=== PATIENT | male | born 1965 | race Caucasian/White ===

== ENCOUNTER 2020-08-13 00:47 | Emergency (ER) | payer MEDICAID, OTHER ==
[~2020-08-13] VITALS: Ht 170.1 cm; Wt 77.1 kg
[2020-08-13] MEDS ORDERED: LACTATED RINGERS 1,000 ML IV ONE ×2 (01:00→01:45)
[2020-08-13 01:11] LABS: BASOPHILS # (AUTO) 0.1 10^3/uL (0.0-0.1); BASOPHILS % (AUTO) 0 % (0-10); EOSINOPHILS % (AUTO) 0 % (0-10); HEMATOCRIT 50 % (40-54); HEMOGLOBIN 16.9 g/dL (13.3-17.7); LYMPHOCYTES # (AUTO) 1.2 10^3/uL (1.0-4.0); LYMPHOCYTES % (AUTO) 6 % (12-44); MEAN CORPUSCULAR HEMOGLOBIN 32 pg (25-34); MEAN CORPUSCULAR HGB CONC 34 g/dL (32-36); MEAN CORPUSCULAR VOLUME 95 fL (80-99); MEAN PLATELET VOLUME 10.1 fL (9.0-12.2); MONOCYTES # (AUTO) 1.3 10^3/uL (0.0-1.0); MONOCYTES % (AUTO) 7 % (0-12); NEUTROPHILS % (AUTO) 86 % (42-75); PLATELET COUNT 252 10^3/uL (130-400); WHITE BLOOD COUNT 18.7 10^3/uL (4.3-11.0)
[2020-08-13 01:21] LABS: CHLORIDE 109 MMOL/L (98-107); POTASSIUM 3.8 MMOL/L (3.6-5.0); SODIUM 142 MMOL/L (135-145)
[2020-08-13 01:22] LABS: ALBUMIN 4.7 GM/DL (3.2-4.5)
[2020-08-13 01:23] LABS: CALCIUM 9.4 MG/DL (8.5-10.1); PROTHROMBIN TIME PATIENT 13.6 SEC (12.2-14.7)
[2020-08-13 01:24] LABS: GLUCOSE 118 MG/DL (70-105); TOTAL PROTEIN 7.3 GM/DL (6.4-8.2)
[2020-08-13 01:25] LABS: CARBON DIOXIDE 19 MMOL/L (21-32)
[2020-08-13 01:28] LABS: ALKALINE PHOSPHATASE 126 U/L (40-136); CREATININE SERUM 1.41 MG/DL (0.60-1.30); GFR ESTIMATED 52
[2020-08-13 01:29] LABS: BUN/CREATININE RATIO 11
[2020-08-13 01:31] LABS: ALANINE AMINOTRANSFERASE 20 U/L (0-55); CREATINE KINASE 128 U/L (30-200); MAGNESIUM 1.7 MG/DL (1.6-2.4)
[2020-08-13 01:38] LABS: CREATINE KINASE MB 1.2 NG/ML (<6.6)
[2020-08-13 01:39] LABS: ACETAMINOPHEN < 10 UG/ML (10-30)
[2020-08-13 02:15] LABS: BAND NEUTROPHILS 12 %; LYMPHOCYTES % (MANUAL) 6 %; MICROCYTOSIS SLIGHT; MONOCYTES % (MANUAL) 6 %; NEUTROPHILS % (MANUAL) 76 %; POLYCHROMASIA MODERATE
--- NOTE | 2020-08-13 02:28 | ED General ---
General Chief Complaint: Neurological Problems Stated Complaint: SIEZURE/CONFUSION Nursing Triage Note: ARRIVES BY POV WS REPORTED HE WAS HAVING A SEIZURE TATTOOER. Nursing Sepsis Screen: No Definite Risk Source of Information: Patient (SOMEWHAT DIFFICULT HISTORIAN) Allergies and Home Medications Allergies Coded Allergies: No Known Drug Allergies (Unverified , 08/13/20) Past Egydusu-Xillog-Xtbuap Hx Patient Social History Alcohol Use: Denies Use Recreational Drug Use: No Type Used: Smokeless Tobacco Recent Foreign Travel: No Contact w/Someone Who Travel: No Recent Infectious Disease Expo: No Recent Hopitalizations: No Physical Abuse: No Sexual Abuse: No Mistreated: No Fear: No Immunizations Up To Date Tetanus Booster (TDap): Unknown Seasonal Allergies Seasonal Allergies: No Past Medical History Surgeries: Yes Cardiac Respiratory: No Cardiac: No Neurological: No Genitourinary: No Gastrointestinal: No Musculoskeletal: No Endocrine: No HEENT: No Cancer: No Psychosocial: No Integumentary: No Blood Disorders: No Physical Exam Vital Signs Vital Signs - First Documented 08/13/20 00:54 Temp 37.0 Pulse 104 Resp 18 B/P (MAP) 129/89 (102) Pulse Ox 94 Capillary Refill : Less Than 3 Seconds Height, Weight, BMI Height: '" Weight: lbs. oz. kg; 26.00 BMI Method: Progress/Results/Core Measures Suspected Sepsis Recent Fever Within 48 Hours: No Infection Criteria Present: None New/Unexplained Altered Menta: No Sepsis Screen: No Definite Risk SIRS Temperature: Pulse: 104 Respiratory Rate: 18 Laboratory Tests 08/13/20 01:00: White Blood Count 18.7H Blood Pressure 129 /89 Mean: 102 Laboratory Tests 08/13/20 01:00: Creatinine 1.41H, INR Comment 1.0, Platelet Count 252, Total Bilirubin 1.0 Results/Orders Lab Results Laboratory Tests Test 08/13/20 01:00 08/13/20 01:30 08/13/20 01:34 Range/Units White Blood Count 18.7 H 4.3-11.0 10^3/uL Red Blood Count 5.33 4.30-5.52 10^6/uL Hemoglobin 16.9 13.3-17.7 g/dL Hematocrit 50 40-54 % Mean Corpuscular Volume 95 80-99 fL Mean Corpuscular Hemoglobin 32 25-34 pg Mean Corpuscular Hemoglobin Concent 34 32-36 g/dL Red Cell Distribution Width 12.9 10.0-14.5 % Platelet Count 252 130-400 10^3/uL Mean Platelet Volume 10.1 9.0-12.2 fL Immature Granulocyte % (Auto) 0 % Neutrophils (%) (Auto) 86 H 42-75 % Lymphocytes (%) (Auto) 6 L 12-44 % Monocytes (%) (Auto) 7 0-12 % Eosinophils (%) (Auto) 0 0-10 % Basophils (%) (Auto) 0 0-10 % Neutrophils # (Auto) 16.0 H 1.8-7.8 10^3/uL Lymphocytes # (Auto) 1.2 1.0-4.0 10^3/uL Monocytes # (Auto) 1.3 H 0.0-1.0 10^3/uL Eosinophils # (Auto) 0.0 0.0-0.3 10^3/uL Basophils # (Auto) 0.1 0.0-0.1 10^3/uL Immature Granulocyte # (Auto) 0.1 0.0-0.1 10^3/uL Neutrophils % (Manual) 76 % Lymphocytes % (Manual) 6 % Monocytes % (Manual) 6 % Band Neutrophils 12 % Polychromasia MODERATE Microcytosis SLIGHT Prothrombin Time 13.6 12.2-14.7 SEC INR Comment 1.0 0.8-1.4 Activated Partial Thromboplast Time 36 H 24-35 SEC Sodium Level 142 135-145 MMOL/L Potassium Level 3.8 3.6-5.0 MMOL/L Chloride Level 109 H 98-107 MMOL/L Carbon Dioxide Level 19 L 21-32 MMOL/L Anion Gap 14 5-14 MMOL/L Blood Urea Nitrogen 15 7-18 MG/DL Creatinine 1.41 H 0.60-1.30 MG/DL Estimat Glomerular Filtration Rate 52 BUN/Creatinine Ratio 11 Glucose Level 118 H 70-105 MG/DL Glucometer 110 70-110 MG/DL Calcium Level 9.4 8.5-10.1 MG/DL Corrected Calcium 8.5-10.1 MG/DL Magnesium Level 1.7 1.6-2.4 MG/DL Total Bilirubin 1.0 0.1-1.0 MG/DL Aspartate Amino Transf (AST/SGOT) 18 5-34 U/L Alanine Aminotransferase (ALT/SGPT) 20 0-55 U/L Alkaline Phosphatase 126 40-136 U/L Total Creatine Kinase 128 30-200 U/L Creatine Kinase MB 1.2 <6.6 NG/ML Myoglobin 210.8 H 10.0-92.0 NG/ML Total Protein 7.3 6.4-8.2 GM/DL Albumin 4.7 H 3.2-4.5 GM/DL Acetaminophen Level < 10 L 10-30 UG/ML Serum Alcohol < 10 <10 MG/DL Coronavirus 2019 (LOIS) Negative Negative Troponin I < 0.028 <0.028 NG/ML My Orders Orders - NAVYA MUNOZ DO Accucheck Stat ONCE (08/13/20 00:55) Ed Iv/Invasive Line Start (08/13/20 00:55) Ekg Tracing (08/13/20 00:55) Monitor-Rhythm Ecg Trace Only (08/13/20 00:55) Ct Head Wo-R/O Stroke (08/13/20 00:55) Acetaminophen (08/13/20 00:55) Alcohol (08/13/20 00:55) Cbc With Automated Diff (08/13/20 00:55) Comprehensive Metabolic Panel (08/13/20 00:55) Creatine Kinase (08/13/20 00:55) Creatine Kinase Mb (08/13/20 00:55) Dilantin (Phenytoin) (08/13/20 00:55) Drug Screen Stat (Urine) (08/13/20 00:55) Magnesium (08/13/20 00:55) Protime With Inr (08/13/20 00:55) Partial Thromboplastin Time (08/13/20 00:55) Ua Culture If Indicated (08/13/20 00:55) Myoglobin Serum (08/13/20 00:55) Ed Iv/Invasive Line Start (08/13/20 00:55) Lactated Ringers (Lr 1000 Ml Iv Solution (08/13/20 01:00) Chest 1 View, Ap/Pa Only (08/13/20 00:57) Coronavirus Sars-Cov-2 So 2018 (08/13/20 00:59) Covid 19 Inhouse Test (08/13/20 00:59) Manual Differential (08/13/20 01:00) Troponin I (08/13/20 01:34) Ekg Tracing (08/13/20 01:34) Ed Iv/Invasive Line Start (08/13/20 01:43) Lactated Ringers (Lr 1000 Ml Iv Solution (08/13/20 01:45) Medications Given in ED Current Medications Medications Dose Ordered Sig/Jenny Route Start Time Stop Time Status Last Admin Dose Admin Lactated Ringer's 1,000 ml @ 0 mls/hr Q0M ONCE IV 08/13/20 01:00 08/13/20 01:01 DC 08/13/20 02:15 1,000 MLS/HR Lactated Ringer's 1,000 ml @ 0 mls/hr Q0M ONCE IV 08/13/20 01:45 08/13/20 01:46 DC 08/13/20 02:24 100 MLS/HR Vital Signs/I&O 08/13/20 00:54 Temp 37.0 Pulse 104 Resp 18 B/P (MAP) 129/89 (102) Pulse Ox 94 Capillary Refill : Less Than 3 Seconds Blood Pressure Mean: 102 Point of Care Testing Finger Stick Blood Glucose: 110 Progress Note : Progress Note SLEPT THROUGH ENTIRE ER STAY, EASILY AWAKENS NO DETERIORATION IN PT'S CONDITION DURING ER STAY NO SEIZURE ACTIVITY DURING ER STAY ECG Initial ECG Impression Date: Aug 13, 2020 Initial ECG Impression Time: 01:38 Initial ECG Rate: 84 Initial ECG Rhythm: Normal Sinus (RBBB) Initial ECG Impression: Nonspecific Changes Initial ECG Comparisson: No Previous ECG Available Diagnostic Imaging Comments CXR--NO ACUTE PROCESS, PENDING RADIOLOGIST REVIEW CT HEAD--NO ACUTE PROCESS, PER [facility] VIA FAX AT [id number] Reviewed: Reviewed by Me Departure Impression Primary Impression: REPORTED SEIZURE ACTIVITY Additional Impressions: Hx of seizure disorder Non-compliance Disposition: 01 HOME, SELF-CARE Condition: Stable Departure-Patient Inst. Patient Instructions: Seizures, Adult (DC) Add. Discharge Instructions: GET YOUR PRESCRIPTIONS FILLED TODAY AND TAKE PRESCRIBED INCREASE YOUR FLUID INTAKE FOLLOW UP WITH OF [facility] THIS WEEK FOR FURTHER CARE--CALL THIS MORNING TO SCHEDULE AN APPOINTMENT--LIST OF LOCAL PROVIDERS ATTACHED All discharge instructions reviewed with patient and/or family. Voiced understanding. Work/School Note: Local Medical Staff Listing NAVYA MUNOZ DO Aug 13, 2020 02:28
[2020-08-13 03:23] LABS: BILIRUBIN,URINE NEGATIVE (NEGATIVE); CLARITY,URINE CLEAR; COLOR,URINE YELLOW; GLUCOSE, URINE (UA) NEGATIVE (NEGATIVE); KETONES,URINE NEGATIVE (NEGATIVE); LEUKOCYTE ESTERASE ,URINE NEGATIVE (NEGATIVE); NITRITE,URINE NEGATIVE (NEGATIVE); PROTEIN,URINE NEGATIVE (NEGATIVE)
[2020-08-13 03:35] LABS: AMPHETAMINE SCREEN, URINE NEGATIVE (NEGATIVE); BACTERIA,URINE NEGATIVE /HPF; BARBITURATE SCREEN URINE NEGATIVE (NEGATIVE); BENZODIAZEPINES SCREEN URINE NEGATIVE (NEGATIVE); CANNABINOID SCREEN, URINE NEGATIVE (NEGATIVE); COCAINE SCREEN URINE NEGATIVE (NEGATIVE); METHADONE STAT NEGATIVE (NEGATIVE); METHAMPHETAMINE SCREEN URINE S NEGATIVE (NEGATIVE); OPIATE SCREEN URINE NEGATIVE (NEGATIVE); OXYCODONE STAT NEGATIVE (NEGATIVE); PROPOXYPHENE STAT NEGATIVE (NEGATIVE); SQUAMOUS EPITHELIAL CELL,UR RARE /HPF; TRICYCLIC ANTIDEPRESSANTS SCRE NEGATIVE (NEGATIVE); WBC,URINE RARE /HPF
[2020-08-13 03:48] VITALS: BP 108/58
--- NOTE | 2020-08-13 06:15 | Diagnostic Imaging Report ---
PROCEDURE: CT head wo r/o stroke. TECHNIQUE: Multiple contiguous axial images were obtained through the brain without the use of intravenous contrast. Auto Exposure Controls were utilized during the CT exam to meet ALARA standards for radiation dose reduction. INDICATION: Seizure. Altered mental status. Neurological deficit. COMPARISON: None. FINDINGS: No intracranial hemorrhage, mass effect, hydrocephalus or extra-axial fluid collections. No CT evidence of a territorial infarction. Osseous structures are intact. The paranasal sinuses are clear. Small left mastoid effusion. IMPRESSION: 1. No acute intracranial CT findings. 2. Nonspecific small left mastoid effusion. No significant change from preliminary interpretation. Dictated by: Dictated on workstation # [id number]
--- NOTE | 2020-08-13 06:52 | Diagnostic Imaging Report ---
INDICATION: Seizure COMPARISON: None available TECHNIQUE: Single radiograph of the chest dated 08/13/2020 FINDINGS: Stimulator device is present with battery pack overlying the left chest. The cardiac silhouette is mildly enlarged. No significant pulmonary vascular congestion. The lungs are clear. No pleural effusion. No pneumothorax. No acute osseous abnormality. IMPRESSION: Borderline cardiomegaly without significant pulmonary vascular congestion. Dictated by: Dictated on workstation # [id number]
== END 2020-08-13 03:49 | disposition home or self-care (01) ==
LOC: ER 00:51
DX: G40.909 Epilepsy, unspecified, not intractable, without status epilepticus (principal); Z91.19 Patient's noncompliance with other medical treatment and regimen; Z20.828 Contact with and (suspected) exposure to other viral communicable diseases
CPT/HCPCS: 36415; 70450; 71045; 80053; 80185; 80306; 80320; 80329; 81000; 82550; 82553; 82962; 83735; 83874; 84484; 85007; 85027; 85610; 85730; 87635; 93005; 93041

== ENCOUNTER 2023-07-18 19:43 | Emergency (ER) | payer MEDICARE, MEDICAID ==
[~2023-07-18] VITALS: Ht 182 cm; Wt 100.0 kg
--- NOTE | 2023-07-18 19:58 | ED General ---
General Stated Complaint: SEIZURE Source of Information: EMS History of Present Illness Date Seen by Provider: Jul 18, 2023 Time Seen by Provider: 19:45 Initial Comments Patient is a 58-year-old male who presents to the emergency room after 2 seizures this evening. This history is primarily obtained from paramedics as the patient is "postictal" and also has 5 mg of Versed on board. He reportedly lives at home with his girlfriend who found him on the floor lying on his right side after apparently having a seizure. He had bruising around the right lateral orbit. Was postictal on paramedics arrival. Blood sugar in the 90s. He did start to "come around" while medics were at the scene. In the ambulance he had a second episode that lasted about 90 seconds. One of the medics actually was able to obtain video of the seizure, generalized tonic-clonic of the head, mouth, arms. I was unable to visualize the legs or hands. He received as stated 5 mg of Versed prior to arrival. He did vomit a couple of times prior to arrival. Was placed on oxygen. Apparently was in the hospital in [place] within the last couple of days and had a surgery related to a device in the left upper chest. Per review of his medical record he has a VNS. 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 This likely accounts for the very long midsternal scar extending down into the mid abdomen. On arrival patient is obviously sedate with 4 to 5 mm pupils, nonverbal, not really following commands. Room air oxygen saturations 93% with wheezes and crackles in the right lung field. He is not tachycardic or tachypneic. His blood pressure is adequate. He is afebrile. He does have small contusion to the right lower lip. No obvious intraoral injury. Tongue depressor was not used to evaluate the pharynx secondary to the risk of causing him to gag and vomit again. Hand overhand exam does not reveal any evidence of shoulder instability, joint swelling or injury. Timing/Duration: 1 Hour Severity: Severe Allergies and Home Medications Allergies Coded Allergies: No Known Drug Allergies (Unverified , 08/13/20) Patient Home Medication List Home Medication List Reviewed: Yes Review of Systems Review of Systems Constitutional: see HPI unable to obtain due to post ictal state Past Ncuruda-Ufieen-Bnnmre Hx Immunizations Up To Date Tetanus Booster (TDap): Unknown Seasonal Allergies Seasonal Allergies: No Past Medical History Surgeries: Yes (VAGAL NERVE STIMULATOR; SURGERY AGE 5 TO REPAIR HOLE IN HEART) Cardiac, Neurological Respiratory: No Cardiac: Yes (SURGERY AGE 5 TO REPAIR HOLE IN HEART) Congenital Heart Disease Neurological: Yes (VAGAL NERVE STIMULATOR IN PLACE) Seizure Disorder Genitourinary: No Gastrointestinal: No Musculoskeletal: No Endocrine: No HEENT: No Cancer: No Psychosocial: No Integumentary: No Blood Disorders: No Physical Exam Vital Signs Vital Signs - First Documented 07/18/23 19:45 Temp 36.2 Pulse 95 Resp 16 B/P (MAP) 113/72 (86) Pulse Ox 94 O2 Delivery Room Air Capillary Refill : Height, Weight, BMI Height: '" Weight: lbs. oz. kg; 26.00 BMI Method: General Appearance: No Apparent Distress, WD/WN Eyes: Bilateral Eye Normal Inspection (pupile 4-5mm) HEENT: PERRL/EOMI, Other (right lower lip contusion; almost periorbital ecchymoses right eye/eyebrow; small bruis nasal bridge - no blood in nares) Neck: Supple Respiratory: No Respiratory Distress, Crackles, Wheezing (right posterior lung fieds; area of recent surgery left upper CW with sutures in place about 4cm length. No erythema; no swelling) Cardiovascular: Regular Rate, Rhythm, Normal Peripheral Pulses Gastrointestinal: Non Tender, Soft Extremity: Normal Inspection Neurologic/Psychiatric: Other (rousable to voice; non verbal - not following commands at this time) Skin: Normal Color, Warm/Dry Focused Exam Lactate Level 07/18/23 20:25: Lactic Acid Level 4.00*H Lactic Acid Level Laboratory Tests Test 07/18/23 20:25 Lactic Acid Level 4.00 MMOL/L (0.50-2.00) *H Progress/Results/Core Measures Suspected Sepsis SIRS Temperature: Pulse: Respiratory Rate: Laboratory Tests 07/18/23 19:55: White Blood Count 8.2 Blood Pressure / Mean: 07/18/23 20:25: Lactic Acid Level 4.00*H Laboratory Tests 07/18/23 19:55: Creatinine 1.30, Platelet Count 224, Total Bilirubin 0.2 Results/Orders Lab Results Laboratory Tests Test 07/18/23 19:53 07/18/23 19:55 07/18/23 20:25 07/18/23 21:20 Range/Units Glucometer 90 70-110 MG/DL White Blood Count 8.2 4.3-11.0 10^3/uL Red Blood Count 4.77 4.30-5.52 10^6/uL Hemoglobin 14.3 13.3-17.7 g/dL Hematocrit 47 40-54 % Mean Corpuscular Volume 98 80-99 fL Mean Corpuscular Hemoglobin 30 25-34 pg Mean Corpuscular Hemoglobin Concent 31 L 32-36 g/dL Red Cell Distribution Width 14.2 10.0-14.5 % Platelet Count 224 130-400 10^3/uL Mean Platelet Volume 10.4 9.0-12.2 fL Immature Granulocyte % (Auto) 1 % Neutrophils (%) (Auto) 70 42-75 % Lymphocytes (%) (Auto) 22 12-44 % Monocytes (%) (Auto) 7 0-12 % Eosinophils (%) (Auto) 0 0-10 % Basophils (%) (Auto) 1 0-10 % Neutrophils # (Auto) 5.7 1.8-7.8 10^3/uL Lymphocytes # (Auto) 1.8 1.0-4.0 10^3/uL Monocytes # (Auto) 0.6 0.0-1.0 10^3/uL Eosinophils # (Auto) 0.0 0.0-0.3 10^3/uL Basophils # (Auto) 0.1 0.0-0.1 10^3/uL Immature Granulocyte # (Auto) 0.0 0.0-0.1 10^3/uL Sodium Level 140 135-145 MMOL/L Potassium Level 3.6 3.6-5.0 MMOL/L Chloride Level 108 H 98-107 MMOL/L Carbon Dioxide Level 17 L 21-32 MMOL/L Anion Gap 15 H 5-14 MMOL/L Blood Urea Nitrogen 18 7-18 MG/DL Creatinine 1.30 0.60-1.30 MG/DL Estimat Glomerular Filtration Rate 64 BUN/Creatinine Ratio 14 Glucose Level 84 70-105 MG/DL Calcium Level 9.1 8.5-10.1 MG/DL Corrected Calcium 8.8 8.5-10.1 MG/DL Total Bilirubin 0.2 0.1-1.0 MG/DL Aspartate Amino Transf (AST/SGOT) 16 5-34 U/L Alanine Aminotransferase (ALT/SGPT) 11 0-55 U/L Alkaline Phosphatase 134 40-136 U/L Total Protein 7.4 6.4-8.2 GM/DL Albumin 4.4 3.2-4.5 GM/DL Serum Alcohol < 10 <10 MG/DL Lactic Acid Level 4.00 *H 0.50-2.00 MMOL/L Urine Opiates Screen NEGATIVE NEGATIVE Urine Oxycodone Screen NEGATIVE NEGATIVE Urine Methadone Screen NEGATIVE NEGATIVE Urine Barbiturates Screen NEGATIVE NEGATIVE Ur Tricyclic Antidepressants Screen NEGATIVE NEGATIVE Urine Phencyclidine Screen NEGATIVE NEGATIVE Urine Amphetamines Screen NEGATIVE NEGATIVE Urine Methamphetamines Screen NEGATIVE NEGATIVE Urine Benzodiazepines Screen NEGATIVE NEGATIVE Urine Cocaine Screen NEGATIVE NEGATIVE Urine Cannabinoids Screen NEGATIVE NEGATIVE Micro Results Microbiology 07/18/23 Blood Culture - Preliminary, Resulted My Orders Orders - HERNAN BAY MD Ed Iv/Invasive Line Start (07/18/23 20:03) Cbc And Automated Diff (07/18/23 20:03) Comprehensive Metabolic Panel (07/18/23 20:03) Blood Culture (07/18/23 20:03) Drug Screen Stat (Urine) (07/18/23 20:03) Alcohol (07/18/23 20:03) Chest 1 View, Ap/Pa Only (07/18/23 20:03) Ct Head/Cervical Spine Wo (07/18/23 20:03) Lactic Acid Analyzer (07/18/23 20:03) Ondansetron Injection (Ondansetron Inj (07/18/23 20:15) Acetaminophen Tablet (Acetaminophen Ta (07/18/23 22:15) Acetaminophen Tablet (Acetaminophen Ta (07/18/23 22:11) Medications Given in ED Vital Signs/I&O 07/18/23 07/18/23 19:45 22:16 Temp 36.2 Pulse 95 70 Resp 16 20 B/P (MAP) 113/72 (86) 119/78 Pulse Ox 94 98 O2 Delivery Room Air Room Air Capillary Refill : Progress Note : Time: 22:06 Progress Note Patient is seen and evaluated by me. Evaluation today includes physical exam, CBC, comprehensive metabolic panel, lactic acid, alcohol level, urine drug screen, single view chest x-ray, CT head and neck without contrast. Pertinent physical exam findings well-developed well-nourished male, stable vital signs, appears postictal. Nonverbal, not really following commands but eyes are open. He has evidence of contusion around the right eye with mild ecchymosis. Also small contusion to the lower lip. Heart is regular, lungs are clear. Abdomen is soft. Hand overhand exam of the extremities, torso and abdomen reveal no concerning findings for bony injury, his abdomen is nontender, nondistended. Bowel sounds are present. He does have healing suture site to the left upper chest wall consistent with recent attention to his VNS. Differential diagnosis includes seizure, malfunctioning vagus nerve stimulator, electrolyte imbalance, intoxication Labs, imaging independently reviewed and interpreted by me. His CBC is normal. His comprehensive metabolic panel shows a slightly low CO2 at 17 with a gap of 15. His glucose is 84. His lactic acid is quite elevated at 4, most consistent with history of repeated seizures this evening. Alcohol is undetectable, urine drug screen is negative. Single view chest x-ray shows no evidence of effusion or infiltrate. CT head and neck without contrast read by the radiologist reveal no evidence of intracranial injury or cervical spine injury. Patient had Zofran 4 mg IV after arrival as he vomited while in route with EMS. He was monitored while labs and imaging return. Slowly regained normal level of consciousness. Was appropriate, alert, following commands. Had continuing swelling to the right eye with circumferential hematoma. Pupils remain equal and reactive. No obvious globe injury. Extraocular muscles intact. No dental injury. He asked for Tylenol prior to discharge. I recommended that he follow-up closely with the neurosurgeon who replaced the battery on his VNS. His family is at the bedside and are agreeable with the plan of care. No concerning findings for intoxication. His mucous membranes are moist. Vital signs remained stable, he did not receive any IV fluids. Patient is comfortable with discharged home, all questions were sought and answered. Patient had both verbal and written return precautions provided. Diagnostic Imaging Diagonstic Imaging: Xray Plain Films/CT/US/NM/MRI: chest Comments [facility] [place], [place] NAME: NOHELIA LUNDBERG [facility] REC#: [id number] PT STATUS: REG ER : 1965 PHYSICIAN: HERNAN BAY MD ADMIT DATE: 07/18/23/ER Signed Date of Exam:07/18/23 CHEST 1 VIEW, AP/PA ONLY INDICATION: Seizure, suspected aspiration. COMPARISON: 08/13/2020. FINDINGS: Single view of the chest shows cardiomegaly with mild central venous congestion. Findings are accentuated by the portable technique. No confluent consolidation is seen. There is no effusion or pneumothorax. A left-sided vagus neurostimulator is noted. Soft tissues and bony thorax are normal. IMPRESSION: 1. Borderline cardiomegaly with mild central venous congestion, accentuated by the portable technique and low lung volumes. 2. There is no confluent consolidation. Dictated by: Dictated on workstation # [id number] Dict: 07/18/232034 Trans: 07/18/232058 [facility] [id number] Interpreted by: TUNG DUMONT MD Electronically signed by: TUNG DUMONT MD 07/18/232058 Diagonstic Imaging: CT Comments [facility] [place] NAME: NOHELIA LUNDBERG [facility] REC#: [id number] PT STATUS: REG ER : 1965 PHYSICIAN: HERNAN BAY MD ADMIT DATE: 07/18/23/ER Signed Date of Exam:07/18/23 CT HEAD/CERVICAL SPINE WO PROCEDURE: CT head and CT cervical spine without contrast. TECHNIQUE: Multiple contiguous axial images were obtained through the brain and cervical spine without the use of intravenous contrast. Sagittal and coronal reformations through the cervical spine were then performed. Auto Exposure Controls were utilized during the CT exam to meet ALARA standards for radiation dose reduction. INDICATION: 58-year-old male with witnessed seizure, found on the floor with apparent seizure-like activity described by significant other. Patient has bruising to the nose and above the right eye. Patient had a recent vagal nerve stimulator placed. FINDINGS: CT head without contrast: Midline structures are not displaced. Lateral, 3rd and 4th ventricles are normal in size, shape and anatomic position. There is no mass, mass effect, hydrocephalus or hemorrhage. Gonsales-white differentiation is normal. There is no sulcal effacement. There is no abnormal extra-axial fluid collection or hemorrhage. Basilar cisterns appear normal. Sinuses and orbits are normal. Bone windows show no calvarial change. The right mastoid air cells are asymmetrically prominent. There is trace fluid in the left mastoid air cells. IMPRESSION: 1. Unremarkable nonenhanced CT brain. 2. Trace fluid in the left mastoid air cells. 3. There is a right frontal supraorbital scalp hematoma. There is also mild calvarial hyperostosis. CT cervical spine with reconstructions: Axial images and sagittal and coronal reconstructions of the cervical spine demonstrate some moderate cervical spondylosis with multilevel hypertrophic facet changes. There is also an anterior bridging osteophyte at C3-C4. Vertebral bodies otherwise appear reasonably well aligned and vertebral bodies appear reasonably well-maintained. 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 The relationship of the dens to the lateral mass of C1, however, is maintained. There is no evidence of acute fracture or acute subluxation seen. Parapharyngeal and paraspinous soft tissues are also unremarkable. The visualized lung apices are grossly normal. IMPRESSION: Moderate cervical spondylosis but no evidence of acute fracture or subluxation seen. Dictated by: Dictated on workstation # [id number] Dict: 07/18/232023 Trans: 07/18/232145 [facility] [phone] Interpreted by: TUNG DUMONT MD Electronically signed by: TUNG DUMONT MD 07/18/232145 Departure Impression Primary Impression: Seizure Additional Impressions: Periorbital contusion of right eye Qualified Codes: S05.11XA - Contusion of eyeball and orbital tissues, right eye, initial encounter Contusion, lip Qualified Codes: S00.531A - Contusion of lip, initial encounter Disposition: 01 HOME, SELF-CARE Condition: Improved Departure-Patient Inst. Decision time for Depature: 22:06 Referrals: NO,LOCAL PHYSICIAN (PCP/Family) Primary Care Physician Patient Instructions: [facility] ED Add. Discharge Instructions: Continue your daily medications as prescribed. Ice pack 20 minutes at a time hourly over the next 24 hours to your right eye and lip. This will help with swelling. [id number] extra strength Tylenol or low-dose ibuprofen, 400 mg every 6 hours with food as needed for pain. Please call and follow-up with neurology tomorrow regarding your VNS stimulator. When you call [facility] in [place] you might ask for the neurologist/neurosurgeon (who replaced the battery) professional wrestler. If you have any recurrent seizures please return to the emergency department for reevaluation. HERNAN BAY MD Jul 18, 2023 19:58
[2023-07-18] MEDS ORDERED: ONDANSETRON INJECTION 4 MG/2 ML (SDV) IVP ONE (20:15)
[2023-07-18 20:36] LABS: BASOPHILS # (AUTO) 0.1 10^3/uL (0.0-0.1); BASOPHILS % (AUTO) 1 % (0-10); EOSINOPHILS % (AUTO) 0 % (0-10); HEMATOCRIT 47 % (40-54); HEMOGLOBIN 14.3 g/dL (13.3-17.7); LYMPHOCYTES # (AUTO) 1.8 10^3/uL (1.0-4.0); LYMPHOCYTES % (AUTO) 22 % (12-44); MEAN CORPUSCULAR HEMOGLOBIN 30 pg (25-34); MEAN CORPUSCULAR HGB CONC 31 g/dL (32-36); MEAN CORPUSCULAR VOLUME 98 fL (80-99); MEAN PLATELET VOLUME 10.4 fL (9.0-12.2); MONOCYTES # (AUTO) 0.6 10^3/uL (0.0-1.0); MONOCYTES % (AUTO) 7 % (0-12); NEUTROPHILS # (AUTO) 5.7 10^3/uL (1.8-7.8); NEUTROPHILS % (AUTO) 70 % (42-75); PLATELET COUNT 224 10^3/uL (130-400); WHITE BLOOD COUNT 8.2 10^3/uL (4.3-11.0)
--- NOTE | 2023-07-18 20:39 | Diagnostic Imaging Report ---
INDICATION: Seizure, suspected aspiration. COMPARISON: 08/13/2020. FINDINGS: Single view of the chest shows cardiomegaly with mild central venous congestion. Findings are accentuated by the portable technique. No confluent consolidation is seen. There is no effusion or pneumothorax. A left-sided vagus neurostimulator is noted. Soft tissues and bony thorax are normal. IMPRESSION: 1. Borderline cardiomegaly with mild central venous congestion, accentuated by the portable technique and low lung volumes. 2. There is no confluent consolidation. Dictated by: Dictated on workstation # [id number]
[2023-07-18 20:41] LABS: ALBUMIN 4.4 GM/DL (3.2-4.5); CHLORIDE 108 MMOL/L (98-107); POTASSIUM 3.6 MMOL/L (3.6-5.0); SODIUM 140 MMOL/L (135-145)
[2023-07-18 20:42] LABS: CALCIUM 9.1 MG/DL (8.5-10.1)
[2023-07-18 20:43] LABS: GLUCOSE 84 MG/DL (70-105); TOTAL PROTEIN 7.4 GM/DL (6.4-8.2)
[2023-07-18 20:44] LABS: CARBON DIOXIDE 17 MMOL/L (21-32)
[2023-07-18 20:45] LABS: BILIRUBIN,TOTAL 0.2 MG/DL (0.1-1.0)
[2023-07-18 20:47] LABS: ALKALINE PHOSPHATASE 134 U/L (40-136); GFR ESTIMATED 64
[2023-07-18 20:48] LABS: BUN/CREATININE RATIO 14
[2023-07-18 20:50] LABS: ALANINE AMINOTRANSFERASE 11 U/L (0-55)
--- NOTE | 2023-07-18 21:13 | Diagnostic Imaging Report ---
PROCEDURE: CT head and CT cervical spine without contrast. TECHNIQUE: Multiple contiguous axial images were obtained through the brain and cervical spine without the use of intravenous contrast. Sagittal and coronal reformations through the cervical spine were then performed. Auto Exposure Controls were utilized during the CT exam to meet ALARA standards for radiation dose reduction. INDICATION: 58-year-old male with witnessed seizure, found on the floor with apparent seizure-like activity described by significant other. Patient has bruising to the nose and above the right eye. Patient had a recent vagal nerve stimulator placed. FINDINGS: CT head without contrast: Midline structures are not displaced. Lateral, 3rd and 4th ventricles are normal in size, shape and anatomic position. There is no mass, mass effect, hydrocephalus or hemorrhage. Gonsales-white differentiation is normal. There is no sulcal effacement. There is no abnormal extra-axial fluid collection or hemorrhage. Basilar cisterns appear normal. Sinuses and orbits are normal. Bone windows show no calvarial change. The right mastoid air cells are asymmetrically prominent. There is trace fluid in the left mastoid air cells. IMPRESSION: 1. Unremarkable nonenhanced CT brain. 2. Trace fluid in the left mastoid air cells. 3. There is a right frontal supraorbital scalp hematoma. There is also mild calvarial hyperostosis. CT cervical spine with reconstructions: Axial images and sagittal and coronal reconstructions of the cervical spine demonstrate some moderate cervical spondylosis with multilevel hypertrophic facet changes. There is also an anterior bridging osteophyte at C3-C4. Vertebral bodies otherwise appear reasonably well aligned and vertebral bodies appear reasonably well-maintained. 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 The relationship of the dens to the lateral mass of C1, however, is maintained. There is no evidence of acute fracture or acute subluxation seen. Parapharyngeal and paraspinous soft tissues are also unremarkable. The visualized lung apices are grossly normal. IMPRESSION: Moderate cervical spondylosis but no evidence of acute fracture or subluxation seen. Dictated by: Dictated on workstation # [id number]
[2023-07-18 21:53] LABS: AMPHETAMINE SCREEN, URINE NEGATIVE (NEGATIVE); BARBITURATE SCREEN URINE NEGATIVE (NEGATIVE); CANNABINOID SCREEN, URINE NEGATIVE (NEGATIVE); COCAINE SCREEN URINE NEGATIVE (NEGATIVE); METHADONE STAT NEGATIVE (NEGATIVE); OPIATE SCREEN URINE NEGATIVE (NEGATIVE); OXYCODONE STAT NEGATIVE (NEGATIVE); TRICYCLIC ANTIDEPRESSANTS SCRE NEGATIVE (NEGATIVE)
[2023-07-18] MEDS ORDERED: ACETAMINOPHEN 500 MG TABLET ONE (22:11)
[2023-07-18] MEDS ORDERED: ACETAMINOPHEN 500 MG TABLET PO ONE (22:15)
[2023-07-18 22:16] VITALS: BP 119/78
== END 2023-07-18 22:16 | disposition home or self-care (01) ==
LOC: EDUNIT# 19:43 → ER 19:45
DX: S05.11XA Contusion of eyeball and orbital tissues, right eye, initial encounter (principal); G40.909 Epilepsy, unspecified, not intractable, without status epilepticus; X58.XXXA Exposure to other specified factors, initial encounter
CPT/HCPCS: 36415; 70450; 71045; 72125; 80053; 80306; 80320; 82947; 83605; 85025; 87040; 96374